=== PATIENT | female | born 1990 | race Caucasian/White ===

== ENCOUNTER → 2017-10-31 | Outpatient (CLI) | payer OTHER ==
[~2017-10-31] MED LIST: DOCU-131 PO; IBUP-1222 PO; OXYC-302 PO
== END | disposition home or self-care (01) ==
LOC: CFH 08:34
PROVIDERS: ATTEND Nurse Practitioner Family
DX: N83.201 Unspecified ovarian cyst, right side (principal)
CPT/HCPCS: 76830

== ENCOUNTER 2018-09-09 21:36 | Outpatient (CLI) | payer BC ==
[2018-09-09] MEDS ORDERED: LACTATED RINGERS 1,000 ML IV SCH ×2 (22:00→22:30)
[2018-09-09] MEDS ORDERED: PLEASE ENTER HEIGHT AND WEIGHT MC SCH (22:30)
[2018-09-09 22:32] LABS: MICROSCOPIC NOT IND
[2018-09-09] MEDS ORDERED: OXYcodone/APAP 5/325MG TABLET PO PRN (23:30)
[2018-09-09] MEDS ORDERED: OXYcodone/APAP 5/325MG TABLET ONE (23:31)
== END 2018-09-09 23:57 | disposition home or self-care (01) ==
LOC: LDOP 21:36
PROVIDERS: ATTEND Obstetrics & Gynecology
DX: O21.2 Late vomiting of pregnancy (principal); Z3A.23 23 weeks gestation of pregnancy
CPT/HCPCS: 81003; 87086; 96360; J7120; 59025; 99211; G0463

== ENCOUNTER 2018-09-11 09:49 | Inpatient (IN) | payer BC ==
[~2018-09-11] VITALS: Ht 172.7 cm; Wt 71.0 kg
[2018-09-11] MEDS ORDERED: LACTATED RINGERS 1,000 ML IVBOLUS ONE (10:00)
[2018-09-11] MEDS ORDERED: METOCLOPRAMIDE 5 MG/ML, 2ML IV ONE (10:00)
[2018-09-11] MEDS ORDERED: SODIUM CITRATE/CITRIC ACID 15 ML UDC PO ONE (10:00)
[2018-09-11] MEDS ORDERED: SODIUM CITRATE/CITRIC ACID 15 ML UDC ONE (10:07)
[2018-09-11] MEDS ORDERED: METOCLOPRAMIDE 5 MG/ML, 2ML ONE (10:07)
[2018-09-11] MEDS ORDERED: ONDANSETRON 4 MG TABLET ONE (10:07)
[2018-09-11] MEDS ORDERED: NEWBORN KIT ONE (10:07)
[2018-09-11] MEDS ORDERED: OXYTOCIN 30U/ 0.9% NaCL 500ML 500 ML ONE (10:08)
[2018-09-11] MEDS ORDERED: ONDANSETRON ODT 4 MG ONE (10:08)
[2018-09-11 10:48] LABS: BASOPHILS # (AUTO) 0.03 x10^3/uL (0-0.1); BASOPHILS % (AUTO) 0 % (0-1); EOSINOPHILS # (AUTO) 0.08 x10^3/uL (0-0.4); EOSINOPHILS % (AUTO) 1 % (1-7); LYMPHOCYTES # (AUTO) 1.67 x10^3/uL (1-3.4); LYMPHOCYTES % (AUTO) 23 % (22-44); MD NO; MEAN CORPUSCULAR HEMOGLOBIN 33.1 pg (27.0-34.8); MEAN CORPUSCULAR HGB CONC 33.4 g/dL (32.4-35.8); MEAN CORPUSCULAR VOLUME 99.2 fL (80-100); MEAN PLATELET VOLUME 7.9 fL (7.4-10.4); MONOCYTES # (AUTO) 0.59 x10^3/uL (0.2-0.8); MONOCYTES % (AUTO) 8 % (2-9); NEUTROPHILS # (AUTO) 4.82 x10^3/uL (1.8-6.8); NEUTROPHILS % (AUTO) 67 % (42-75); PLATELET COUNT 202 x10^3/uL (130-400); RED BLOOD COUNT 4.37 x10^6/uL (3.82-5.3); RED CELL DISTRIBUTION WIDTH 12.8 % (9.6-15.2)
[2018-09-11] MEDS ORDERED: OXYcodone 5 MG/5 ML ORAL.SOL UDC PO PRN (12:00)
[2018-09-11] MEDS ORDERED: MIDAZOLAM 1 MG/ML, 2ML IV PRN (12:00)
[2018-09-11] MEDS ORDERED: EPHEDRINE 50 MG/ML, 1ML IVPush PRN (12:00)
[2018-09-11] MEDS ORDERED: HYDROcodone/APAP 7.5-325MG/15ML UDC PO PRN (12:00)
[2018-09-11] MEDS ORDERED: PROMETHAZINE 25 MG/ML, 1ML IV PRN (12:00)
[2018-09-11] MEDS ORDERED: HYDROmorphone 2 MG/ML, 1ML IVPush PRN (12:00)
[2018-09-11] MEDS ORDERED: MEPERIDINE/PF 25MG/0.5ML IVPush PRN (12:00)
[2018-09-11] MEDS ORDERED: ALBUTEROL SULFATE 2.5 MG/3 ML NPPB PRN (12:00)
[2018-09-11] MEDS ORDERED: hydrALAzine 20 MG/ML, 1ML IV PRN (12:00)
[2018-09-11] MEDS ORDERED: ONDANSETRON 2MG/ML, 2ML IVPush PRN (12:00)
[2018-09-11] MEDS ORDERED: LABETALOL 5 MG/ML SYRINGE IV PRN (12:00)
[2018-09-11] MEDS ORDERED: EPHEDRINE 50 MG/ML, 1ML ONE (12:04)
[2018-09-11] MEDS ORDERED: PHENYLEPHRINE 10 MG/ML ONE (12:04)
[2018-09-11] MEDS ORDERED: OXYTOCIN 10 UNITS/ML, 1ML ONE (12:04)
[2018-09-11] MEDS ORDERED: DEXAMETHASONE 4 MG/ML, 1ML ONE (12:04)
[2018-09-11] MEDS ORDERED: KETOROLAC 30 MG/1 ML ONE (12:04)
[2018-09-11] MEDS ORDERED: ONDANSETRON 2MG/ML, 2ML ONE (12:04)
[2018-09-11] MEDS ORDERED: CEFAZOLIN 1,000 MG ONE (12:04)
[2018-09-11] MEDS ORDERED: FENTANYL PF 100 MCG/2ML ONE (12:05)
[2018-09-11] MEDS ORDERED: HYDROmorphone 2 MG/ML, 1ML ONE (12:39)
[2018-09-11] MEDS ORDERED: OXYTOCIN 30U/ 0.9% NaCL 500ML 500 ML IV SCH (12:59)
[2018-09-11] MEDS ORDERED: LACTATED RINGERS 1,000 ML IV SCH ×2 (12:59)
[2018-09-11] MEDS ORDERED: MISOPROSTOL 200 MCG TABLET PR PRN (13:00)
[2018-09-11] MEDS ORDERED: MORPHINE SULFATE 4 MG/ML, 1ML IVPush PRN (13:00)
[2018-09-11] MEDS ORDERED: OXYcodone/APAP 5/325MG TABLET PO PRN (13:00)
[2018-09-11] MEDS: KETOROLAC 30 MG/1 ML IV SCH ×2 (13:00→19:42)
[2018-09-11] MEDS ORDERED: ONDANSETRON 2MG/ML, 2ML IV PRN (13:00)
[2018-09-11 15:00] VITALS: BP 111/61
[2018-09-11] MEDS: OXYcodone IR 5MG TABLET PO PRN ×3 (15:11→23:44)
[2018-09-11 19:40] VITALS: BP 111/67
[2018-09-11] MEDS: DOCUSATE 100 MG CAPSULE PO PRN (19:42)
[2018-09-11] MEDS: ACETAMINOPHEN 325 MG TABLET PO PRN ×2 (19:42→23:44)
[2018-09-11 20:33] LABS: MEAN CORPUSCULAR HEMOGLOBIN 33.4 pg (27.0-34.8); MEAN CORPUSCULAR HGB CONC 33.4 g/dL (32.4-35.8); MEAN CORPUSCULAR VOLUME 99.9 fL (80-100); MEAN PLATELET VOLUME 8.1 fL (7.4-10.4); PLATELET COUNT 195 x10^3/uL (130-400); RED BLOOD COUNT 3.69 x10^6/uL (3.82-5.3); RED CELL DISTRIBUTION WIDTH 12.1 % (9.6-15.2)
[2018-09-11 20:57] LABS: BASOPHILS # (AUTO) 0.01 x10^3/uL (0-0.1); BASOPHILS % (AUTO) 0 % (0-1); EOSINOPHILS # (AUTO) 0.01 x10^3/uL (0-0.4); EOSINOPHILS % (AUTO) 0 % (1-7); LYMPHOCYTES # (AUTO) 1.13 x10^3/uL (1-3.4); LYMPHOCYTES % (AUTO) 9 % (22-44); MD NO; MONOCYTES # (AUTO) 0.59 x10^3/uL (0.2-0.8); MONOCYTES % (AUTO) 4 % (2-9); NEUTROPHILS # (AUTO) 11.63 x10^3/uL (1.8-6.8); NEUTROPHILS % (AUTO) 87 % (42-75)
[2018-09-12 00:25] VITALS: BP 97/59
[2018-09-12] MEDS: KETOROLAC 30 MG/1 ML IV SCH ×5 (01:45→19:00)
[2018-09-12] MEDS: OXYcodone IR 5MG TABLET PO PRN ×5 (04:12→21:12)
[2018-09-12] MEDS: ACETAMINOPHEN 325 MG TABLET PO PRN ×5 (04:13→21:12)
[2018-09-12 04:30] VITALS: BP 110/74
[2018-09-12 07:40] VITALS: BP 112/72
[2018-09-12] MEDS: DOCUSATE 100 MG CAPSULE PO PRN ×2 (07:52→21:12)
[2018-09-12] MEDS: PRENATAL VIT/IRON/FA 1 EACH TABLET PO SCH (07:52)
[2018-09-12] MEDS ORDERED: IBUPROFEN 600 MG TABLET ONE ×2 (14:09→21:08)
[2018-09-12] MEDS: IBUPROFEN 600 MG TABLET PO PRN ×2 (14:10→21:12)
[2018-09-12] MEDS ORDERED: SIMETHICONE 80 MG CHEW TAB PO PRN (16:30)
[2018-09-12 19:30] VITALS: BP 98/65
[2018-09-13] MEDS: OXYcodone IR 5MG TABLET PO PRN ×3 (02:08→11:45)
[2018-09-13] MEDS: ACETAMINOPHEN 325 MG TABLET PO PRN ×3 (02:08→11:46)
[2018-09-13] MEDS ORDERED: IBUPROFEN 600 MG TABLET ONE (05:58)
[2018-09-13] MEDS: IBUPROFEN 600 MG TABLET PO PRN ×2 (06:03→11:50)
[2018-09-13] MEDS ORDERED: ONDANSETRON ODT 4 MG PO PRN (07:30)
[2018-09-13 07:50] VITALS: BP 96/62
[2018-09-13] MEDS: DOCUSATE 100 MG CAPSULE PO PRN (11:45)
[2018-09-13] MEDS: PRENATAL VIT/IRON/FA 1 EACH TABLET PO SCH (11:46)
[2018-09-13] MEDS ORDERED: OXYC-302 PO (13:17)
[2018-09-13] MEDS ORDERED: IBUP-1222 PO (13:18)
== END 2018-09-13 14:34 | disposition home or self-care (01) | DRG 788 ==
LOC: LDIP 09:49 → 2NW 14:37
PROVIDERS: ADMIT Obstetrics & Gynecology; ATTEND Obstetrics & Gynecology
PROC: 10D00Z1 Extraction of Products of Conception, Low, Open Approach (ICD-10-PCS; principal; 2018-09-12)
DX: O34.211 Maternal care for low transverse scar from previous cesarean delivery (principal); Z37.0 Single live birth; Z3A.39 39 weeks gestation of pregnancy
CPT/HCPCS: 36415; 85025; 86850; 86900; G0378; J0690; J1100; J1170; J1885; J2405; J3010; Q0162; J2270; J2370; J2590; J2765; J7120